=== PATIENT | female | born 1990 | race Caucasian/White ===

== ENCOUNTER 2023-10-06 20:47 | Outpatient (REF) | payer OTHER, SELFPAY ==
[2023-10-10 12:10] LABS: Age Gdln ACOG Testing Note (.); HPV Aptima Negative (Negative); IGP, Aptima HPV, rfx 16/18,45 Note (.)
== END 2023-10-06 20:48 | disposition home or self-care (01) ==
LOC: LAB 20:47
PROVIDERS: PCP Obstetrics & Gynecology; Visit Provider Obstetrics & Gynecology
DX: Z01.419 Encounter for gynecological examination (general) (routine) without abnormal findings (principal)
CPT/HCPCS: 87624; G0145

== ENCOUNTER 2024-02-19 10:10 | Emergency (ER) | payer OTHER, SELFPAY ==
[2024-02-19 10:14] VITALS: BP 140/98; PULSE 78; TEMP 36.6; O2SAT 98; BMI 34.3
--- OUTSIDE RECORDS SUMMARY | 2024-02-19 10:18 | XMS_ITS | CCD ---
Author Organization [facility] Care Team Providers Care Mail Delivery Supervisor Name Role Phone Eleni Kim Unavailable Shereen Vu Unavailable AshliePaty winn Unavailable DR RENZO CRAIN Consulting Unavailable [facility] [place] Primary Care Unavailable BREANN, DR RENZO Scott Attending Unavailable BREANN, DR RENZO Scott Admitting Unavailable FAZAL ., DR MINOR Consulting Unavailable [facility] [place] Primary Care Unavailable FAZAL ., DR MINOR Attending Unavailable FAZAL ., DR MINOR Admitting Unavailable IVÁN DIEHL Attending Unavailable Medications Current Medications Medication Drug Class(es) Dates Sig (Normalized) Sig (Original) Cetirizine (1 source) Histamine-1 Receptor Antagonist ZyrTEC Allergy Activ e Citalopram (7 sources) Serotonin Reuptake Inhibitor Citalopram [place] bromide Active Completed/Discontinued Medications Medication Drug Class(es) Dates Sig (Normalized) Sig (Original) dextromethorphan hydrobromide 15 mg / guaiFENesin 400 mg / pseudoephedrine hydrochloride 60 mg oral tablet (6 sources) alpha-Adrenergic Agonist, Uncompetitive A-dkuaxn-J-aspartat e Receptor Antagonist, Sigma-1 Agonist Start: 06-22-2021 take 4 tablets by mouth every twenty-four hours as needed Capmist DM 60-15-400 MG as needed Orally every 4-6 hours as needed, max 4 tablets in 24 hours for 5 days Jun, Not-Taking Start: 06-22-2021 Problems Active Problems Problem Classification Problem Date Documented Da te Episodic/Chronic Immunizations and screening for infectious disease (8 sources) Contact with and (suspected) exposure to other viral communicable diseases; Translations: [Encounter for screening for other viral diseases] Onset: 06-07-2021 Resolved: 10-01-2021 Episodic Other screening for suspected conditions (not mental disorders or infectious disease) (4 sources) Encounter for screening for malignant neoplasm of cervix; Translations: [ENC SCREENING MALIG NEOPLASM CERV] Onset: 10-02-2022 Episodic Past or Other Problems Problem Classification Problem Date Documented Da te Episodic/Chronic Disorders of teeth and jaw (4 sources) Other specified disorders of teeth and supporting structures; Translations: [OTH SPEC DISORDERS TEETH SUPP STRCT] Onset: 02-26-2022 Episodic Other ear and sense organ disorders (1 source) Impacted cerumen, right ear Onset: 09-14-2021 Resolved: 09-14-2021 Episodic Other upper respiratory infections (4 sources) Acute upper respiratory infection, unspecified Onset: 06-22-2021 Resolved: 10-01-2021 Episodic Results Test Name Value Interpretation Reference Range Facil ity PAP ACOG PANEL 2: 21 to 29on 10-10-[address] [facility] Comment on above: Performed By: #### [id number] #### [facility] [address] [place] [address] Dr. Kieran Schmidt DIAGNOSIS: Comment [facility] Comment on above: Result Comment: NEGATIVE FOR INTRAEPITHE LIAL LESION OR MALIGNANCY. Performed By: #### [id number] #### [facility] [address] [place] [address] Dr. Kieran Schmidt Methodology: Comment [facility] Comment on above: Result Comment: This liquid based ThinPr ep(R) pap test was screened with the use of an image guided system. Performed By: #### [id number] #### [facility] [address] [place] [address] Dr. Kieran Schmidt Note: Comment [facility] Comment on above: Result Comment: The Pap smear is a scree farida test designed to aid in the detection of premalignant and malignant conditions of the uterine cervix. It is not a diagnostic procedure and should not be used as the sole means of detecting cervical cancer. Both false-positive and false-negative reports do occur. . Performed By: #### [id number] #### [facility] [address] [place] [address] Dr. Kieran Schmidt Performed by: Comment [facility] Comment on above: Result Comment: Calvin Stoddard, Cytotechno logist (ASCP) Performed By: #### [id number] #### [facility] [address] [place] [address] Dr. Kieran Schmidt Reflex Criteria: Comment [facility] Comment on above: Result Comment: The HPV DNA reflex crite conor were not met with this specimen result therefore, no HPV testing was performed. . Performed By: #### [id number] #### [facility] [address] [place] [address] Dr. Kieran Schmidt Specimen adequacy: Comment Normal [facility] Comment on above: Result Comment: Satisfactory for evaluat ion. Endocervical and/or squamous metaplastic cells (endocervical component) are present. Performed By: #### [id number] #### [facility] [address] [place] [address] Dr. Kieran Schmidt Age Gdln ACOG Testing - Normal [facility] Comment on above: Performed By: #### [id number] #### [facility] [address] [place] [address] Dr. Kieran Schmidt COVID Quick Testingon 2021 Result Negative [facility] Other Quick Fluon 10-01-2021 FLUAV Ab CF (S) [Titer] Negative [facility] Other FLUBV Ab CF (S) [Titer] Negative [facility] [employer] Other COVID Quick Testingon 2021 Result Negative [facility] Other COVID Quick Testingon 2020 Result Negative [facility] Other COVID Quick Testingon 2020 Result Negative [facility] Other COVID Quick Testingon 2020 Result Negative [facility] Other Vital Signs Date Time Vital Sign Value Performing Clinician Facility 10-01-2021 10:45-0500 Body height 162.56 cm Paty Ashile Other [facility] Other 10-01-2021 10:45-0500 Body mass index (BMI) [Ratio] 37.24 kg/m2 Paty Doanmond Other [facility] Other 10-01-2021 10:45-0500 Body temperature 98.5 [degF] Paty Ashlie Other [facility] Other 10-01-2021 10:45-0500 Body weight 98.43 kg Paty Doanmond Other [facility] Other 10-01-2021 10:45-0500 Respiratory rate 18 /min Paty Doanmond Other [facility] Other 10-01-2021 10:45-0500 SaO2% (BldA) [Mass fraction] 97 % Paty Doanmond Other [facility] Other 09-14-2021 11:30-0500 Body height 162.56 cm Paty Doanmond Other [facility] Other 09-14-2021 11:30-0500 Body temperature 97.4 [degF] Paty Ashlie Other [facility] Other 09-14-2021 11:30-0500 SaO2% (BldA) [Mass fraction] 98 % Paty Ashlie Other [facility] Other 07-31-2021 13:45-0500 Body height 162.56 cm Eleni Kim Other [facility] Other 07-19-2021 15:45-0500 Body height 162.56 cm Eleni Kim Other [facility] Other 07-19-2021 15:45-0500 Body mass index (BMI) [Ratio] 39.48 kg/m2 Eleni Kim Other [facility] Other 07-19-2021 15:45-0500 Body temperature 98.9 [degF] Eleni Kim Other [facility] Other 07-19-2021 15:45-0500 Body weight 104.33 kg Eleni Kim Other [facility] Other 07-19-2021 15:45-0500 Respiratory rate 18 /min Eleni Kim Other [facility] Other 07-19-2021 15:45-0500 SaO2% (BldA) [Mass fraction] 98 % Eleni Kim Other [facility] Other 07-06-2021 11:45-0500 Body height 162.56 cm Paty Ashlie Other [facility] Other 07-06-2021 11:45-0500 Body mass index (BMI) [Ratio] 39.48 kg/m2 Paty Ashlie Other [facility] Other 07-06-2021 11:45-0500 Body temperature 98 [degF] Paty Ashlie Other [facility] Other 07-06-2021 11:45-0500 Body weight 104.33 kg Paty Ashlie Other [facility] Other 07-06-2021 11:45-0500 Respiratory rate 18 /min Paty Dailey Other [facility] Other 07-06-2021 11:45-0500 SaO2% (BldA) [Mass fraction] 98 % Paty Dailey Other [facility] Other 06-22-2021 11:00-0400 Body height 162.56 cm Shereen Ginty Other [facility] Other 06-22-2021 11:00-0400 Body temperature 97.5 [degF] Shereen Ginty Other [facility] Other 06-22-2021 11:00-0400 SaO2% (BldA) [Mass fraction] 97 % Shereen Ginty Other [facility] Other 06-07-2021 12:15-0400 Body height 162.56 cm Eleni Judy Other [facility] Other 06-07-2021 12:15-0400 Body mass index (BMI) [Ratio] 39.48 kg/m2 Eleni Judy Other [facility] Other 06-07-2021 12:15-0400 Body temperature 97.8 [degF] Eleni Judy Other [facility] Other 06-07-2021 12:15-0400 Body weight 104.33 kg Eleni Judy Other [facility] Other 06-07-2021 12:15-0400 Respiratory rate 18 /min Eleni Kim Other [facility] Other 06-07-2021 12:150400 SaO2% (BldA) [Mass fraction] 98 % Eleni Kim Other [facility] Other Encounters Encounter Date Encounter Type Care Provider Facility Start: 10-06-2023 End: 10-06-2023 ambulatory IVÁN DIEHL Not Available Start: 10-02-2022 End: 10-02-[address] IVÁN DIEHL . Facility:[facility] Start: 02-26-2022 End: 02-26-[address] RENZO CRAIN Facility:[facility] Start: 10-01-2021 End: 10-01-2021 ambulatory Paty Ashlie Other [facility] Other Start: 10-01-2021 Office outpatient visit 15 minutes Paty Ashlie [facility] Start: 09-14-2021 (URG) Urgent Care Visit Paty Ashlie [facility] Start: 09-14-2021 End: 09-14-2021 ambulatory Paty Ashlie Other [facility] Other Start: 07-31-2021 End: 07-31-2021 ambulatory Eleni Judy Other [facility] Other Start: 07-31-2021 Office outpatient visit 5 minutes Eleni Judy [facility] Start: 07-19-2021 End: 07-19-2021 ambulatory Eleni Judy Other [facility] Other Start: 07-19-2021 Office outpatient visit 15 minutes Eleni Judy [facility] Start: 07-06-2021 End: 07-06-2021 ambulatory Paty Ashlie Other [facility] Other Start: 07-06-2021 Office outpatient visit 15 minutes Paty Ashlie [facility] Start: 06-22-2021 End: 06-22-2021 ambulatory Shereen Vu Other [facility] Other Start: 06-22-2021 Office outpatient visit 15 minutes Shereen Vu [facility] Start: 06-07-2021 End: 06-07-2021 ambulatory Eleni Kim Other [facility] Other Start: 06-07-2021 Office outpatient visit 15 minutes Eleni Kim [facility] Payers Date Payer Category Payer Unknown [id number] [id number] 1992 Unknown [id number] 1992 Unknown [id number] 1959 Unknown [id number] 1959 Unknown [id number] Social History Date Type Detail Facility Sex Assigned At [facility] Other Evaluation note 10-01-2021 Note Date & Type Note Facility 10-01-2021 Evaluation note Encounter Date Diagnosis Assessment Notes Sep, Contact with and (suspected) exposure to other viral communicable diseases (ICD-10 - Z20.828) Sep, Viral upper respiratory illness (ICD-10 - J06.9) Drink plenty fluids get plenty of rest take Tylenol Motrin for aches pains or fevers. Follow-up with your family physician if no improvement in 2-3 days Sep, Other Additional time spent conducting pre-visit phone call, screening for symptoms, instructions on social distancing, application and removal of PPE, and cleaning of examination room, equipment and supplies was preformed. Patient education given for testing methodology and results. Patient care instructions given in writting by [facility] document. [facility] Other Evaluation note 07-31-2021 Note Date & Type Note Facility 07-31-2021 Evaluation note Encounter Date Diagnosis Assessment Notes Jul, Encounter for screening for other viral diseases (ICD-10 - Z11.59) Jul, Other Additional time spent conducting pre-visit phone call, screening for symptoms, instructions on social distancing, application and removal of PPE, and cleaning of examination room, equipment and supplies was preformed. Patient education given for testing methodology and results. Patient care instructions given in writting by [facility] document. [facility] Other Evaluation note 07-19-2021 Note Date & Type Note Facility 07-19-2021 Evaluation note Encounter Date Diagnosis Assessment Notes Jul, Contact with and (suspected) exposure to other viral communicable diseases (ICD-10 - Z20.828) Today test was performed in office. Results are currently negative. That does not mean that you will not develop COVID or do not currently have a low viral count of COVID. The rapid test works best if symptoms have been over 72 hours and the results can vary if you are asymptomatic There is a higher chance of false negative results to occur if testing is performed too soon. It is recommended that even if results are negative and you have been exposed to someone that has COVID that you follow current CDC recommendations . These can be found at CDC.GOV. Follow up with primary care provider if symptoms persist or do not improve Jul, Other Additional time spent conducting pre-visit phone call, screening for symptoms, instructions on social distancing, application and removal of PPE, and cleaning of examination room, equipment and supplies was preformed. Patient education given for testing methodology and results. Patient care instructions given in writting by [facility] document. [facility] Other Evaluation note 07-06-2021 Note Date & Type Note Facility 07-06-2021 Evaluation note Encounter Date Diagnosis Assessment Notes Jun, Contact with and (suspected) exposure to other viral communicable diseases (ICD-10 - Z20.828) Jun, Viral upper respiratory illness (ICD-10 - J06.9) Jun, Other Additional time spent conducting pre-visit phone call, screening for symptoms, instructions on social distancing, application and removal of PPE, and cleaning of examination room, equipment and supplies was preformed. Patient education given for testing methodology and results. Patient care instructions given in writting by [facility] document. [facility] Other Evaluation note 06-22-2021 Note Date & Type Note Facility 06-22-2021 Evaluation note Encounter Date Diagnosis Assessment Notes Jun, Contact with and (suspected) exposure to other viral communicable diseases (ICD-10 - Z20.828) Jun, Viral URI (ICD-10 - J06.9) Rapid COVID test performed in office today. Advised patient that test was negative. Encouraged viral supportive care. Capmist as directed. Avoid additional OTC cough/cold medications while using CAPMIST as it contains decongestant, antitussive, and antihistamine. Tylenol/Motrin as needed for body aches/fever. Increase fluids and rest. Encouraged use of cool mist humidifier. Follow-up with PCP if symptoms do not improve. Immediate eval for SOB, difficulty, chest pain, fevers that do not break with antipyretic or any other concerning symptoms as reviewed on patient education handout. Patient verbalizes understanding and is agreeable to treatment plan Jun, Other Additional time spent conducting pre-visit phone call, screening for symptoms, instructions on social distancing, application and removal of PPE, and cleaning of examination room, equipment and supplies was preformed. Patient education given for testing methodology and results. Patient care instructions given in writting by [facility] document [facility] Other Evaluation note 06-07-2021 Note Date & Type Note Facility 06-07-2021 Evaluation note Encounter Date Diagnosis Assessment Notes May, Contact with and (suspected) exposure to other viral communicable diseases (ICD-10 - Z20.828) Even though COVID RAPID test is NEGATIVE, I am highly suspicious at this time you may be positive due to the symptoms. Recommend patient follow Quarantine guidelines until you follow up with PCP.. Recommend OTC medication such as Mucinex, Sea salt nasal spray, Cepecol, Tylenol, Zyrtec, as they can help with symptoms May, Other Additional time spent conducting pre-visit phone call, screening for symptoms, instructions on social distancing, application and removal of PPE, and cleaning of examination room, equipment and supplies was preformed. Patient education given for testing methodology and results. Patient care instructions given in writting by [facility] document. [employer] [facility] [facility] [employer] Other Evaluation note Note Date & Type Note Facility Evaluation note [facility] [employer] Other History general Narrative - Reported Note Date & Type Note Facility History general Narrative - Reported Type Medical History anxiety Medical History depression Hospitalization History child [facility] [employer] Other History general Narrative - Reported Note Date & Type Note Facility History general Narrative - Reported [facility] Other Summary Purpose Family History No Family History Records FoundNo Family History Records Found Advance Directives No Advanced Directives Records FoundNo Advanced Directives Records Found Additional Source Comments REASON FOR VISIT (unrecogniz ed section and content) #10 BLACK JEEP, COUGH, CONGE STION, COVID Provider Visit#5 BLACK JEEP, COUGH, SORE THROAT#8 BLACK JEEP, SXS STARTED FRIDAY#24 BLACK JEEP, FEVER, VOMITTING, DIARRHEA, EXPOSURE X 2 DAYS, COVID Provider Visit#16 BLACK JEEP, N/V, DIARRHEA, H/A, B/A, COVID Nurse Visit- Self Pay#2 BLACK JEEP COMPASS, SORE THROAT, VOMITTING INFORMATION SOURCE (unrecogn ized section and content) DATE CREATED AUTHOR 10/11/2022 [facility] DATE CREATED AUTHOR AUTHOR'S ORGANIZ ATION 10/06/2023 [facility] FOR RECORDS PERTAINING TO PATIENTS WHO ARE OR HAVE BEEN ENROLLED IN A CHEMICAL DEPENDENCY/SUBSTANCEABUSE PROGRAM, SOME INFORMATION MAY BE OMITTED. This clinical summary was aggregated from multiple sources. Caution should be exercised in using it in the provision of clinical care. This summary normalizes information from multiple sources, and as a consequence, information in this document may materially change the coding, format and clinical context of patient data. In addition, data may be omitted in some cases. CLINICAL DECISIONS SHOULD BE BASED ON THE PRIMARY CLINICAL RECORDS. [facility] [employer] [facility]. provides no warranty or guarantee of the accuracy or completeness of information in this document.
--- NOTE | 2024-02-19 10:40 | ED_ITS ---
HPI - Dental/Oral General Chief complaint: Dental/Oral Stated complaint: MOUTH PAIN Time Seen by Provider: 02/19/24 10:40 Source: patient Mode of arrival: walk-in Limitations: no limitations History of Present Illness HPI Narrative: This patient is here complaining with tooth ache. She is already working with a dentist. They told her to take ibuprofen. She has extensive periodontal and dental disease and they are contemplating multiple extractions. She does not have any fever. She is not on any antibiotics. She has a swelling on the lower left jaw. Her speech phonation and deglutition and speech breathing are all normal. She has no other complaints. Related Data Allergies Allergy/AdvReac Type Severity Reaction Status Date / Time No Known Drug Allergies Allergy Verified 02/19/24 10:14 Exam Narrative Exam Narrative: Well-hydrated well-nourished her vital signs are stable. Airway is widely patent and intact. There is very subtle soft tissue swelling over the left mandibular area. The maxillary area is normal to tongue uvula palate and buccal mucosa are normal. She has extensive periodontal disease gingival disease on both the left right upper and lower. Most the discomfort is on the lower left premolars. Constitutional Vital Signs, click to edit/add: Last Vital Signs Temp 97.8 F 02/19/24 10:14 Pulse 78 02/19/24 10:14 Resp 18 02/19/24 10:14 BP 140/98 H 02/19/24 10:14 Pulse Ox 98 02/19/24 10:14 Course Vital Signs Vital signs: Vital Signs Temperature 97.8 F 02/19/24 10:14 Pulse Rate 78 02/19/24 10:14 Respiratory Rate 18 02/19/24 10:14 Blood Pressure 140/98 H 02/19/24 10:14 Pulse Oximetry 98 02/19/24 10:14 Temperature 97.8 F 02/19/24 10:14 Pulse Rate 78 02/19/24 10:14 Respiratory Rate 18 02/19/24 10:14 Blood Pressure 140/98 H 02/19/24 10:14 Pulse Oximetry 98 02/19/24 10:14 MDM - Dental/Oral MDM Narrative Medical decision making narrative: Patient with extensive disease will probably benefit from antibiotic and analgesic control. She has got an appointment to follow-up with a dentist Discharge Plan Discharge Stand Alone Forms: Portal Instructions Chief Complaint: Dental/Oral Clinical Impression: Tooth ache Patient Disposition: Home, Self-Care Time of Disposition Decision: 10:42 Print Language: Portuguese Additional Instructions: Clindamycin/warm salt water gargles/Kennard taken with small amount of food, follow-up with your dental Referrals: Physician,Non-Staff, MD [Primary Care Provider] - 1 week
== END 2024-02-19 10:47 | disposition home or self-care (01) ==
PROVIDERS: Emergency Provider Emergency Medicine Emergency Medical Services
DX: K08.89 Other specified disorders of teeth and supporting structures (principal)
CPT/HCPCS: 99283

== ENCOUNTER 2024-10-11 21:33 | Outpatient (REF) | payer OTHER, SELFPAY ==
--- OUTSIDE RECORDS SUMMARY | 2024-10-11 21:36 | XMS_ITS | CCD ---
Author Organization [facility] Care Team Providers Care Beauty Shop Manager Name Role Phone Eleni Kim Unavailable Shereen Vu Unavailable AshliePaty winn Unavailable DR RENZO CRAIN Consulting Unavailable [facility] [place] Primary Care Unavailable BREANN, DR RENZO Scott Attending Unavailable BREANN, DR RENZO Scott Admitting Unavailable DAVINA ., DR MINOR Consulting Unavailable [facility] [place] Primary Care Unavailable DAVINA ., DR MINOR Attending Unavailable DAVINA ., DR MINOR Admitting Unavailable IVÁN GHOSH Attending Unavailable Unavailable Primary Care Provider Unavailabl e Medications Current Medications Medication Drug Class(es) Dates Sig (Normalized) Sig (Original) Cetirizine (1 source) Histamine-1 Receptor Antagonist ZyrTEC Allergy Active citalopram 40 mg oral tablet (8 sources) Serotonin Reuptake Inhibitor Start: 04-22-2023 take 0.5 tablet by mouth once daily citalopram (CeleXA) 40 MG tablet Indications: Depression with anxiety TAKE 1/2 TABLET BY MOUTH EVERY DAY 45 tablet 04/22/2023 Active Citalopram [place] bromide Active levonorgestrel 0.472502 mg/hr intrauterine system (1 source) Progestin, Progestin-containing Intrauterine Device Levonorgestrel (Kristin na, 52 MG,) 20 MCG/DAY intrauterine device as directed Intrauterine Active Completed/Discontinued Medications Medication Drug Class(es) Dates Sig (Normalized) Sig (Original) dextromethorphan hydrobromide 15 mg / guaiFENesin 400 mg / pseudoephedrine hydrochloride 60 mg oral tablet (6 sources) alpha-Adrenergic Agonist, Uncompetitive L-mahazw-U-aspartat e Receptor Antagonist, Sigma-1 Agonist Start: 06-22-2021 [...] 2: 21 to 29on 10-10-2022 . . Normal [facility] Comment on above: Performed By: #### [id number] #### [facility] [address] [address] [address] Kieran Schmidt DIAGNOSIS: Comment [facility] Comment on above: Result Comment: NEGATIVE FOR INTRAEPITHE LIAL LESION OR MALIGNANCY. Performed By: #### [id number] #### [facility] [address] [address] [address] Kieran Schmidt Methodology: Comment [facility] Comment on above: Result Comment: This liquid based ThinPr ep(R) pap test was screened with the use of an image guided system. Performed By: #### [id number] #### [facility] [address] [address] [address] Kieran Schmidt Note: Comment [facility] Comment on above: Result Comment: The Pap smear is a scree farida test designed to aid in the detection of premalignant and malignant conditions of the uterine cervix. It is not a diagnostic procedure and should not be used as the sole means of detecting cervical cancer. Both false-positive and false-negative reports do occur. . Performed By: #### [id number] #### [facility] [address] [place] [address] Dr. Kieran Schmidt Performed by: Comment Normal [facility] Comment on above: Result Comment: Calvin Stoddard Cytotechno logist (ASCP) Performed By: #### [id number] #### [facility] [address] [place] [address] Dr. Kieran Schmidt Reflex Criteria: Comment [facility] Comment on above: Result Comment: The HPV DNA reflex crite conor were not met with this specimen result therefore, no HPV testing was performed. . Performed By: #### [id number] #### [facility] [address] [place] [address] Dr. Kieran Schmidt Specimen adequacy: Comment [facility] Comment on above: Result Comment: Satisfactory for evaluat ion. Endocervical and/or squamous metaplastic cells (endocervical component) are present. Performed By: #### [id number] #### [facility] [address] [place] [address] Dr. Kieran Schmidt Age Gdln ACOG Testing 21-[address] [facility] Comment on above: Performed By: #### [id number] #### [facility] [address] [place] [address] Dr. Kieran Schmidt COVID Quick Testingon 2021 Result Negative [facility] Other Quick Fluon 10-01-2021 FLUAV Ab CF (S) [Titer] Negative [facility] Other FLUBV Ab CF (S) [Titer] Negative [facility] Other COVID Quick Testingon 2021 Result Negative [facility] Other COVID Quick Testingon 2020 Result Negative [facility] Other COVID Quick Testingon 2020 Result Negative [facility] Other COVID Quick Testingon 2020 Result Negative [facility] Other Vital Signs Date Time Vital Sign Value Performing Clinician Facility 10-01-2021 10:45-0500 Body height 162.56 cm Paty Doanmond Other [facility] Other 10-01-2021 10:45-0500 Body mass index (BMI) [Ratio] 37.24 kg/m2 Paty Doanmond Other [facility] Other 10-01-2021 10:45-0500 Body temperature 98.5 [degF] Paty Doanmond Other [facility] Other 10-01-2021 10:45-0500 Body weight 98.43 kg Paty Dailey Other [facility] Other 10-01-2021 10:45-0500 Respiratory rate 18 /min Paty Dailey Other [facility] Other 10-01-2021 10:45-0500 SaO2% (BldA) [Mass fraction] 97 % Paty Doanmond Other [facility] Other 09-14-2021 11:30-0500 Body height 162.56 cm Paty Doanmond Other [facility] Other 09-14-2021 11:30-0500 Body temperature 97.4 [degF] Paty Ashlie Other [facility] Other 09-14-2021 11:30-0500 SaO2% (BldA) [Mass fraction] 98 % Paty Ashlie Other [facility] Other 07-31-2021 13:45-0500 Body height 162.56 cm Eleni Kim Other [facility] Other 07-19-2021 15:45-0500 Body height 162.56 cm Eleni Kim Other [facility] Other 07-19-2021 15:45-0500 Body mass index (BMI) [Ratio] 39.48 kg/m2 Eleni Kim Other [facility] Other 07-19-2021 15:45-0500 Body temperature 98.9 [degF] Eleni Kim Other [facility] Other 07-19-2021 15:45-0500 Body weight 104.33 kg Eleni Kim Other [facility] Other 07-19-2021 15:45-0500 Respiratory rate 18 /min Eleni Kim Other [facility] Other 07-19-2021 15:45-0500 SaO2% (BldA) [Mass fraction] 98 % Eleni Kim Other [facility] Other 07-06-2021 11:45-0500 Body height 162.56 cm Paty Ashlie Other [facility] Other 07-06-2021 11:45-0500 Body mass index (BMI) [Ratio] 39.48 kg/m2 Paty Dailey Other [facility] Other 07-06-2021 11:45-0500 Body temperature 98 [degF] Paty Dailey Other [facility] Other 07-06-2021 11:45-0500 Body weight 104.33 kg Paty Dailey Other [facility] Other 07-06-2021 11:45-0500 Respiratory rate 18 /min Paty Dailey Other [facility] Other 07-06-2021 11:45-0500 SaO2% (BldA) [Mass fraction] 98 % Paty Dailey Other [facility] Other 06-22-2021 11:00-0400 Body height 162.56 cm Shereen Ginty Other [facility] Other 06-22-2021 11:00-0400 Body temperature 97.5 [degF] Shereen Ginty Other [facility] Other 06-22-2021 11:00-0400 SaO2% (BldA) [Mass fraction] 97 % Shereen Ginty Other [facility] Other 06-07-2021 12:15-0400 Body height 162.56 cm Eleni Kim Other [facility] Other 06-07-2021 12:15-0400 Body mass index (BMI) [Ratio] 39.48 kg/m2 Eleni Kim Other [facility] Other 06-07-2021 12:15-0400 Body temperature 97.8 [degF] Eleni Kim Other [facility] Other 06-07-2021 12:15-0400 Body weight 104.33 kg Eleni Kim Other [facility] Other 06-07-2021 12:15-0400 Respiratory rate 18 /min Eleni Kim Other [facility] Other 06-07-2021 12:15-0400 SaO2% (BldA) [Mass fraction] 98 % Eleni Kim Other [facility] Other Encounters Encounter Date Encounter Type Care Provider Facility Start: 10-11-2024 End: 10-11-2024 Bamboo flowsheet Iván Davina DO Work Phone: [facility] Start: 10-11-2024 End: 10-11-2024 Bamboo flowsheet Iván Davina DO Work Phone: [facility] Start: 10-06-2023 End: 10-06-2023 ambulatory IVÁN GHOSH Not Available Start: 10-02-2022 End: 10-02-[address] IVÁN GHOSH . Facility:[facility] Start: 02-26-2022 End: 02-26-[address] RENZO CRAIN Facility:[facility] Start: 10-01-2021 End: 10-01-2021 ambulatory Paty Dailey Other [facility] Other Start: 10-01-2021 Office outpatient visit 15 minutes Paty Dailey [facility] Start: 09-14-2021 (URG) Urgent Care Visit Paty Dailey [facility] Start: 09-14-2021 End: 09-14-2021 ambulatory Paty Dailey Other [facility] Other Start: 07-31-2021 End: 07-31-2021 ambulatory Eleni Judy Other [facility] Other Start: 07-31-2021 Office outpatient visit 5 minutes Eleni Judy [facility] Start: 07-19-2021 End: 07-19-2021 ambulatory Eleniakash Kim Other [facility] Other Start: 07-19-2021 Office outpatient visit 15 minutes Eleni Judy [facility] Start: 07-06-2021 End: 07-06-2021 ambulatory Paty Ashlie Other [facility] Other Start: 07-06-2021 Office outpatient visit 15 minutes Paty Ashlie [facility] Start: 06-22-2021 End: 06-22-2021 ambulatory Shereen Ginty Other [facility] Other Start: 06-22-2021 Office outpatient visit 15 minutes Shereen Ginty [facility] Start: 06-07-2021 End: 06-07-2021 ambulatory Eleni Kim Other [facility] Other Start: 06-07-2021 Office outpatient visit 15 minutes Eleni Judy [facility] Procedures Date Procedure Procedure Detail Performing Clinician Start: 10-06-2023 Microscopic observat ion [Identifier] in Cervix by Cyto stain Iván Ghosh DO Work Phone: Plan of Treatment Date Care Activity Detail Author Start: 10-02-2027 Screening for malign ant neoplasm of cervix [facility] Start: 10-06-2026 Screening for malign ant neoplasm of cervix Pap Smear [facility] Start: 10-11-2024 End: 10-11-2024 Patient encounter procedure 10/11/2024 11:00 AM EST Office Visit [facility] [address] [place] [place] [address] Iván Ghosh, DO [address] [place] [address] [place] [address] Arrived [facility] Comment on above: Arrived Start: 04-18-2024 Influenza vaccination Influenza Vacc ine (#1) [facility] Immunizations Immunization Date Immunization Notes Care Provider Mik salazar 06-06-2015 influenza virus vacc ine, unspecified formulation Iván Ghosh DO Work Phone: [facility] Payers Date Payer Category Payer Private Health Insurance [employer] [id number] 1992 Unknown [id number] 1992 Unknown [id number] 1992 Unknown [id number] 1959 Unknown [id number] 1959 Unknown [id number] Social History Date Type Detail Facility Start: 09-15-2023 Sex Assigned At [facility] [employer] Other Start: 09-15-2023 Tobacco smoking status NHIS Never smoked tobacco [facility] Start: 09-15-2023 Tobacco use and exposure Smokeless tobacco non-user [facility] Start: 10-06-2023 Alcoholic beverage intake Lifetime non-drinker (finding) [facility] Start: 09-15-2023 History of Social function [facility] Start: 1990 Sex assigned at Female [facility] Start: 10-05-2023 Gender identity Identifies as female gender (finding) [facility] Start: 10-05-2023 Sexual orientation Bisexual (finding) [facility] Evaluation note 10-01-2021 Note Date & Type [...] Patient care instructions given in writting by [facility] document. [facility] Other Evaluation note 07-31-2021 Note Date & [...] Patient care instructions given in writting by [facility] document. [facility] Other Evaluation note 07-19-2021 Note Date & [...] instructions given in writting by [facility] document. [facility] Other Evaluation note 07-06-2021 Note Date & [...] Patient care instructions given in writting by [facility] document. [facility] Other Evaluation note 06-22-2021 Note Date & [...] Patient care instructions given in writting by [facility] document [facility] Other Evaluation note 06-07-2021 Note Date & [...] Patient care instructions given in writting by [facility] document. [facility] Other Evaluation note Note Date & Type Note Facility Evaluation note [facility] Other History general Narrative - Reported Note Date & Type Note Facility History general Narrative - Reported Type Medical History anxiety Medical History depression Hospitalization History child [facility] Other History general Narrative - Reported Note Date & Type Note Facility History general Narrative - Reported [facility] Other Summary Purpose Family History No Family [...] content) DATE CREATED AUTHOR 10/11/2022 [facility] DATE CREATED AUTHOR AUTHOR'S COLT ATCAPRICE 10/06/2023 [facility] FOR RECORDS PERTAINING TO PATIENTS WHO ARE [...] BE BASED ON THE PRIMARY CLINICAL RECORDS. [facility] [employer] provides no warranty or guarantee of the accuracy or completeness of information in this document.
[2024-10-14 11:09] LABS: Age Gdln ACOG Testing Note (.); HPV Aptima Negative (Negative); IGP, Aptima HPV, rfx 16/18,45 Note (.)
== END 2024-10-11 21:34 | disposition home or self-care (01) ==
LOC: LAB 21:33
PROVIDERS: Visit Provider Obstetrics & Gynecology
DX: Z01.419 Encounter for gynecological examination (general) (routine) without abnormal findings (principal)
CPT/HCPCS: 87624; 88175